=== PATIENT | male | born 1990 | race American Indian/Alaskan Native ===

== ENCOUNTER 2017-05-28 05:15 | Emergency (ER) | payer SELFPAY ==
[2017-05-28 05:26] VITALS: BP 142/93
[2017-05-28] MEDS ORDERED: TYLENOL ONE (05:26)
[2017-05-28] MEDS ORDERED: TYLENOL PO ONE (05:27)
[2017-05-28] MEDS ORDERED: TORADOL IM ONE (05:46)
[2017-05-28] MEDS ORDERED: TRIMOX PO ONE (05:46)
--- NOTE | 2017-05-28 05:52 | Emergency Department Report ---
ED ENT HPI - General Chief complaint: Dental/Oral Stated complaint: HEADACHE Time Seen by Provider: 05/28/17 05:45 Source: patient Mode of arrival: Ambulatory Limitations: No Limitations - History of Present Illness Initial comments: Patient is a 26-year-old -Spanish male who presents with dental pain 2 weeks patient has history of infected dental caries this , this exacerbation 1 week symptoms include pain mild facial swelling the left side symptoms preventing complete night's sleep patient is tolerating by mouth intake with no nausea vomiting patient states unable to see dentist, due to cost MD complaint: tooth pain Onset/Timin -: week(s) Location: tooth # (15) Severity: moderate Severity scale (0 -10): 5 Quality: burning Consistency: constant Improves with: none Worsens with: eating Context- Dental: history of dental caries - Related Data Previous Rx's Medication Instructions Recorded Last Taken Type Cyclobenzaprine [Flexeril] 10 mg PO TID PRN #10 tablet 02/12/16 Unknown Rx HYDROcodone/APAP 5-325 [[place] 1 - 2 each PO Q6HR PRN #10 tablet 02/12/16 Unknown Rx 5/325] Amoxicillin [Trimox CAP] 500 mg PO TID #30 capsule 05/28/17 Unknown Rx Chlorhexidine Mouthwash [Peridex] 15 ml MM BID #1 bottle 05/28/17 Unknown Rx Ibuprofen [Motrin 800 MG tab] 800 mg PO Q8HR PRN #30 tablet 05/28/17 Unknown Rx Allergies Allergy/AdvReac Type Severity Reaction Status Date / Time No Known Allergies Allergy Verified 02/12/16 00:30 ED Dental HPI - General Chief complaint: Dental/Oral Stated complaint: HEADACHE Time Seen by Provider: 05/28/17 05:45 Source: patient Mode of arrival: Ambulatory Limitations: No Limitations - Related Data Previous Rx's Medication Instructions Recorded Last Taken Type Cyclobenzaprine [Flexeril] 10 mg PO TID PRN #10 tablet 02/12/16 Unknown Rx HYDROcodone/APAP 5-325 [[place] 1 - 2 each PO Q6HR PRN #10 tablet 02/12/16 Unknown Rx 5/325] Amoxicillin [Trimox CAP] 500 mg PO TID #30 capsule 05/28/17 Unknown Rx Chlorhexidine Mouthwash [Peridex] 15 ml MM BID #1 bottle 05/28/17 Unknown Rx Ibuprofen [Motrin 800 MG tab] 800 mg PO Q8HR PRN #30 tablet 05/28/17 Unknown Rx Allergies Allergy/AdvReac Type Severity Reaction Status Date / Time No Known Allergies Allergy Verified 02/12/16 00:30 ED Review of Systems ROS: Stated complaint: HEADACHE Other details as noted in HPI Constitutional: denies: chills, fever Eyes: denies: eye pain, eye discharge, vision change ENT: denies: ear pain, throat pain Respiratory: denies: cough, shortness of breath, wheezing Cardiovascular: denies: chest pain, palpitations Endocrine: no symptoms reported Gastrointestinal: denies: abdominal pain, nausea, vomiting, diarrhea, constipation, hematemesis, melena, hematochezia Genitourinary: denies: urgency, dysuria, frequency, hematuria Musculoskeletal: denies: back pain, joint swelling, arthralgia Skin: denies: rash, lesions Neurological: denies: headache, weakness, paresthesias Psychiatric: denies: anxiety, depression Hematological/Lymphatic: denies: easy bleeding, easy bruising ED Past Medical Hx - Past Medical History Previous Medical History?: No - Surgical History Past Surgical History?: No - Social History Smoking Status: Current Every Day Smoker Substance Use Type: Alcohol - Medications Home Medications: Home Medications Medication Instructions Recorded Confirmed Last Taken Type Cyclobenzaprine [Flexeril] 10 mg PO TID PRN #10 tablet 02/12/16 Unknown Rx HYDROcodone/APAP 5-325 [[place] 1 - 2 each PO Q6HR PRN #10 tablet 02/12/16 Unknown Rx 5/325] Amoxicillin [Trimox CAP] 500 mg PO TID #30 capsule 05/28/17 Unknown Rx Chlorhexidine Mouthwash [Peridex] 15 ml MM BID #1 bottle 05/28/17 Unknown Rx Ibuprofen [Motrin 800 MG tab] 800 mg PO Q8HR PRN #30 tablet 05/28/17 Unknown Rx ED Physical Exam - General Limitations: No Limitations General appearance: alert, in no apparent distress - Head Head exam: Present: atraumatic, normocephalic, normal inspection - Eye Eye exam: Present: normal appearance, PERRL, EOMI, scleral icterus Pupils: Present: normal accommodation - ENT ENT exam: Present: TM's normal bilaterally - Expanded ENT Exam Expanded Mouth exam: Present: tongue normal. Absent: drooling, trismus, tongue elevation Teeth exam: Present: dental caries, dental tenderness # (15) Throat exam: Positive: normal inspection. Negative: tonsillar erythema, tonsillomegaly, tonsillar exudate, R peritonsillar mass, L peritonsillar mass - Neck Neck exam: Present: normal inspection, full ROM. Absent: tenderness, lymphadenopathy, thyromegaly - Expanded Neck Exam Expanded Neck exam: Absent: tenderness, midline deformity, anterior neck swelling, thyroid mass, carotid bruit, tracheal deviation - Respiratory Respiratory exam: Present: normal lung sounds bilaterally. Absent: respiratory distress - Cardiovascular Cardiovascular Exam: Present: regular rate, normal rhythm. Absent: systolic murmur, diastolic murmur, rubs, gallop - GI/Abdominal GI/Abdominal exam: Present: soft, normal bowel sounds. Absent: distended, tenderness, rebound, rigid, organomegaly, mass, bruit, hernia - Rectal Rectal exam: Present: deferred - Extremities Exam Extremities exam: Present: normal inspection - Back Exam Back exam: Present: normal inspection - Neurological Exam Neurological exam: Present: alert, oriented X3 - Psychiatric Psychiatric exam: Present: normal affect, normal mood - Skin Skin exam: Present: warm, dry, intact, normal color. Absent: rash ED Course Vital Signs 05/28/17 05/28/17 05:22 05:28 Temperature 99.9 F H Pulse Rate 118 H Respiratory 20 18 Rate Blood Pressure 142/93 O2 Sat by Pulse 95 Oximetry ED Medical Decision Making - Medical Decision Making Patient is a 26-year-old -Spanish male who presents with dental pain 2 weeks patient has history of infected dental caries this , this exacerbation 1 week symptoms include pain mild facial swelling the left side symptoms preventing complete night's sleep patient is tolerating by mouth intake with no nausea vomiting patient states unable to see dentist, due to cost, exam: Patient appears nontoxic oral exam now gone swelling and erythema #15 no focal abscess no stridor uvula midline no trismus. lungs bilat all lobes, plan patient given Toradol amoxicillin in ED with prescription Peridex ibuprofen amoxicillin patient given community resource sheet for assistance in obtaining dentistry patient verbalizes understanding and agreement with same will be discharged in stable condition at this time. Critical care attestation.: If time is entered above; I have spent that time in minutes in the direct care of this critically ill patient, excluding procedure time. ED Disposition Clinical Impression: Infected dental carries Disposition: DC-01 TO HOME OR SELFCARE Is pt being admited?: No Does the pt Need Aspirin: No Condition: Good Instructions: Dental Caries (ED) Additional Instructions: follow up with your dentist of choice [facility] [phone] Prescriptions: Amoxicillin [Trimox CAP] 500 mg PO TID #30 capsule Chlorhexidine Mouthwash [Peridex] 15 ml MM BID #1 bottle Ibuprofen [Motrin 800 MG tab] 800 mg PO Q8HR PRN #30 tablet PRN Reason: Pain Forms: Work/School Release Form(ED) Time of Disposition: 06:10
== END 2017-05-28 06:15 | disposition home or self-care (01) ==
LOC: ED 05:15
DX: K04.7 Periapical abscess without sinus (principal); F17.200 Nicotine dependence, unspecified, uncomplicated
CPT/HCPCS: 96372; 99282; J1885